=== PATIENT | male | born 2000 | race Asian ===

== ENCOUNTER 2022-10-16 12:53 | Emergency (ER) | payer OTHER ==
[~2022-10-16] VITALS: Ht 182.9 cm; Wt 74.0 kg
[2022-10-16 13:00] VITALS: BP 124/87; PULSE 85; RESP 20; TEMP 98; O2SAT 100
== END 2022-10-16 16:43 | disposition left against medical advice (07) ==
LOC: ER 13:12
DX: Z53.21 Procedure and treatment not carried out due to patient leaving prior to being seen by health care provider (principal)
CPT/HCPCS: 99281